=== PATIENT | female | born 1995 | race Caucasian/White ===

== ENCOUNTER → 2022-11-26 | Outpatient (CLI) | payer OTHER | LOC: M LAB 15:38 | PROVIDERS: ATTEND Advanced Practice Midwife | DX: O21.0 Mild hyperemesis gravidarum (principal); Z3A.00 Weeks of gestation of pregnancy not specified ==

== ENCOUNTER 2023-04-23 13:11 | Emergency (ER) | payer OTHER ==
[~2023-04-23] VITALS: Ht 165.1 cm; Wt 59.3 kg
[2023-04-23] MEDS ORDERED: MULTTAB20 PO (13:29)
[2023-04-23] MEDS: NS 1,000 ML IV ONE (14:29)
[2023-04-23 15:06] LABS: CPK CREATINE PHOSPHOKINASE 52 U/L (34-145)
[2023-04-23 15:09] LABS: ALBUMIN 2.6 G/DL (3.2-5.2); ALKALINE PHOSPHATASE 91 U/L (46-116); ALT/SGPT 20 U/L (7.0-40); AST/SGOT 19 U/L (<34); BILIRUBIN,DIRECT < 0.1 MG/DL (<0.4); BILIRUBIN,TOTAL 0.3 MG/DL (0.3-1.2); BLOOD UREA NITROGEN < 5 MG/DL (9-23); CALCIUM LEVEL 8.1 MG/DL (8.5-10.1); CARBON DIOXIDE LEVEL 22 MMOL/L (20-31); CHLORIDE LEVEL 107 MMOL/L (98-107); CK-MB VALUE MASS < 1.0 NG/ML (<3.6); CREATININE FOR GFR 0.37 MG/DL (0.55-1.30); GLOMERULAR FILTRATION RATE > 60.0 (>60); GLUCOSE, FASTING 94 MG/DL (60-100); MB/CK RELATIVE INDEX 1.92 (< OR =4); POTASSIUM SERUM 3.9 MMOL/L (3.5-5.1); SODIUM LEVEL 135 MMOL/L (136-145)
[2023-04-23] MEDS ORDERED: ISOVUE-370 76% 100ML VIAL As Ordered ONE (15:31)
[2023-04-23 15:37] LABS: BASO % 0.3 % (0.0-1.0); EOS # 0.1 10^3/uL (0.0-0.5); EOS % 1.7 % (0.0-3.0); HEMATOCRIT 30.6 % (36.0-47.0); HEMOGLOBIN 10.2 g/dl (12.0-15.5); LYMPH # 1.4 10^3/uL (1.5-5.0); LYMPH % 19.1 % (24.0-44.0); MEAN CORPUSCULAR HGB CONC 33.3 g/dl (32.0-36.5); MONO # 0.9 10^3/uL (0.0-0.8); MONO % 11.8 % (2.0-8.0); NEUTROPHILS % 66.6 % (36.0-66.0); PLATELET COUNT, AUTOMATED 249 10^3/uL (150-450); WHITE BLOOD COUNT 7.5 10^3/uL (4.0-10.0)
[2023-04-23] MEDS ORDERED: AZIT-12 PO ×2 (17:10→17:13)
[2023-04-23] MEDS: cefTRIAXone SOD 1 GM in D5W MINI-BAG PLUS 50 ML IV ONE (17:10)
[2023-04-23] MEDS: AZITHROMYCIN 250MG TABLET PO ONE (17:23)
[2023-04-23 18:42] VITALS: BP 116/64; TEMP 98.1; O2SAT 99
== END 2023-04-23 18:47 | disposition home or self-care (01) ==
LOC: M ED 13:11
DX: J18.9 Pneumonia, unspecified organism (principal); J06.9 Acute upper respiratory infection, unspecified; Z88.1 Allergy status to other antibiotic agents; Z88.8 Allergy status to other drugs, medicaments and biological substances; Z79.2 Long term (current) use of antibiotics; Z79.810 Long term (current) use of selective estrogen receptor modulators (SERMs)
CPT/HCPCS: 71275; 80048; 80076; 81001; 82550; 82553; 83880; 84484; 85025; 85379; 87086; 87486; 87581; 87633; 87798; 96361; 96374; 99284; J0696; Q9967

== ENCOUNTER → 2023-05-04 | Outpatient (REF) | payer OTHER ==
[~2023-05-04] MED LIST: AZIT-12 PO; MULTTAB20 PO
[2023-05-04 13:58] LABS: HEMATOCRIT 33.4 % (36.0-47.0); HEMOGLOBIN 11.2 g/dl (12.0-15.5); MEAN CORPUSCULAR HEMOGLOBIN 29.8 pg (27.0-33.0); MEAN CORPUSCULAR HGB CONC 33.5 g/dl (32.0-36.5); MEAN CORPUSCULAR VOLUME 88.8 fl (80.0-96.0); PLATELET COUNT, AUTOMATED 304 10^3/uL (150-450); RED BLOOD COUNT 3.76 10^6/uL (4.00-5.40); WHITE BLOOD COUNT 9.4 10^3/uL (4.0-10.0)
[2023-05-04 14:51] LABS: GC DNA AMPLIFICATION NEGATIVE (NEGATIVE)
== END ==
LOC: M SFHCWAGY 12:52
PROVIDERS: ATTEND Specialist
DX: Z34.83 Encounter for supervision of other normal pregnancy, third trimester (principal)

== ENCOUNTER → 2023-05-06 | Outpatient (CLI) | payer OTHER | LOC: M PLALAB 07:05 | PROVIDERS: ATTEND Specialist | DX: Z34.82 Encounter for supervision of other normal pregnancy, second trimester (principal) ==

== ENCOUNTER 2023-05-16 17:00 | Outpatient (CLI) | payer OTHER ==
[~2023-05-16] VITALS: Ht 165.1 cm; Wt 62.7 kg
[2023-05-16 17:18] VITALS: BP 126/75; O2SAT 99
[2023-05-16] MEDS ORDERED: TUMS500C PO (17:27)
[2023-05-16] MEDS ORDERED: HOME MED LIST COMPLETE! XX SCH (17:30)
[2023-05-16 19:03] LABS: HEMATOCRIT 31.8 % (36.0-47.0); HEMOGLOBIN 10.5 g/dl (12.0-15.5); MEAN CORPUSCULAR HEMOGLOBIN 28.8 pg (27.0-33.0); MEAN CORPUSCULAR VOLUME 87.4 fl (80.0-96.0); PLATELET COUNT, AUTOMATED 275 10^3/uL (150-450); RED BLOOD COUNT 3.64 10^6/uL (4.00-5.40); WHITE BLOOD COUNT 10.5 10^3/uL (4.0-10.0)
[2023-05-16] MEDS: ACETAMINOPHEN 500 MG TAB PO ONE (21:09)
== END 2023-05-16 22:00 | disposition home or self-care (01) ==
LOC: M LDO 17:00
PROVIDERS: ATTEND Advanced Practice Midwife
DX: O26.893 Other specified pregnancy related conditions, third trimester (principal); R25.2 Cramp and spasm; R10.84 Generalized abdominal pain; Z3A.30 30 weeks gestation of pregnancy
CPT/HCPCS: 36415; 59025; 85027; 85460; G0463

== ENCOUNTER → 2023-06-21 | Outpatient (REF) | payer OTHER ==
[~2023-06-21] MED LIST changes: +TUMS500C PO
== END ==
LOC: M SFHCWAGY 10:10
PROVIDERS: ATTEND Obstetrics & Gynecology
DX: Z36.85 Encounter for antenatal screening for Streptococcus B (principal); Z3A.36 36 weeks gestation of pregnancy

== ENCOUNTER 2023-06-24 10:55 | Outpatient (CLI) | payer OTHER ==
[~2023-06-24] VITALS: Ht 165.1 cm; Wt 64.8 kg
[2023-06-24] MEDS ORDERED: ACET325C5 PO (11:13)
[2023-06-24 11:15] VITALS: BP 127/80
[2023-06-24] MEDS ORDERED: HOME MED LIST COMPLETE! XX SCH (11:15)
[2023-06-24 12:07] LABS: APPEARANCE, URINE CLEAR (CLEAR); BACTERIA, URINE AUTO NEGATIVE (NEGATIVE); BILIRUBIN, URINE AUTO NEGATIVE (NEGATIVE); BLOOD, URINE BLOOD NEGATIVE (NEGATIVE); COLOR, URINE STRAW (YELLOW); GLUCOSE, URINE (UA) AUTO NEGATIVE (NEGATIVE); KETONE, URINE AUTO 1+ mg/dL (NEGATIVE); LEUKOCYTE ESTERASE, URINE AUTO NEGATIVE (NEGATIVE); NITRITE, URINE AUTO NEGATIVE (NEGATIVE); PROTEIN, URINE AUTO NEGATIVE (NEGATIVE); RBC, URINE AUTO 1 /HPF (0-3); SPECIFIC GRAVITY URINE AUTO 1.004 (1.002-1.035); SQUAMOUS EPITHELIAL CELL UR AU 1 /HPF (0-6); UROBILINOGEN, URINE AUTO 0.2 mg/dL (0.0-2.0); WBC, URINE AUTO 0 /HPF (0-3)
[2023-06-24 14:45] VITALS: BP 120/72
== END 2023-06-24 15:37 | disposition home or self-care (01) ==
LOC: M LDO 10:55
PROVIDERS: ATTEND Advanced Practice Midwife
DX: O47.03 False labor before 37 completed weeks of gestation, third trimester (principal); Z3A.36 36 weeks gestation of pregnancy; Z88.1 Allergy status to other antibiotic agents
CPT/HCPCS: 59025; 81001; G0463

== ENCOUNTER 2023-06-27 12:31 | Inpatient (IN) | payer OTHER ==
[~2023-06-27] VITALS: Ht 165.1 cm; Wt 64.7 kg
[2023-06-27] VITALS (34 sets, daily range): BP systolic 93–149; BP diastolic 51–82; O2SAT 99
[~2023-06-27 12:31] MED LIST changes: +ACET325C5 PO
[2023-06-27] MEDS ORDERED: HOME MED LIST COMPLETE! XX SCH (12:45)
[2023-06-27] MEDS ORDERED: OXYTOCIN INJ 10UNITS/ML 1ML VIAL IM PRN (13:10)
[2023-06-27] MEDS ORDERED: LIDOCAINE 1% MDV 20ML VIAL INFIL PRN (13:10)
[2023-06-27] MEDS ORDERED: CARBOPROST TROMETHAMINE 250 MCG/ML AMP IM PRN (13:10)
[2023-06-27] MEDS ORDERED: TRANEXAMIC ACID INJection 1,000 MG in NS 100 ML IV PRN (13:10)
[2023-06-27] MEDS ORDERED: METHYLERGONOVINE MALEATE 0.2MG/ML 1ML VIAL IM PRN (13:10)
[2023-06-27 14:02] LABS: HEMATOCRIT 33.1 % (36.0-47.0); HEMOGLOBIN 10.8 g/dl (12.0-15.5); MEAN CORPUSCULAR HEMOGLOBIN 27.6 pg (27.0-33.0); MEAN CORPUSCULAR HGB CONC 32.6 g/dl (32.0-36.5); MEAN CORPUSCULAR VOLUME 84.4 fl (80.0-96.0); PLATELET COUNT, AUTOMATED 298 10^3/uL (150-450); RED BLOOD COUNT 3.92 10^6/uL (4.00-5.40); WHITE BLOOD COUNT 9.4 10^3/uL (4.0-10.0)
[2023-06-27] MEDS: VANCOMYCIN HCL 1,000 MG, VIAL MATE ADAPTER 1 EACH in NS 250 ML IV SCH (14:06)
[2023-06-27] MEDS: LR 1,000 ML IV SCH (14:06)
[2023-06-27] MEDS: OXYTOCIN DRIP 30 UNITS in IV 1 EA IV SCH (14:32)
[2023-06-27] MEDS: diphenhydrAMINE 50MG/ML VIAL IV STA (14:51)
[2023-06-27] MEDS: LORATADINE 10 MG TAB PO ONE (15:09)
[2023-06-27 15:21] LABS: HEPATITIS C VIRUS ABY INDEX 0.02 INDEX (<0.8)
[2023-06-27] MEDS: CALCIUM CARBONATE 500 MG CHEW U/D PO ONE (17:45)
[2023-06-27] MEDS: OMEPRAZOLE 20MG CAP PO ONE (19:27)
[2023-06-27] MEDS: LACTATED RINGER'S 1000 ML IV STA (20:02)
[2023-06-27] MEDS ORDERED: ePHEDrine SULFATE 25 MG/5 ML(5MG/ML) SYRINGE IVP PRN (20:50)
[2023-06-27] MEDS ORDERED: diphenhydrAMINE 50MG/ML VIAL IV PRN (20:50)
[2023-06-27] MEDS ORDERED: EPIDURAL/PCA KEYS XX PRN (20:50)
[2023-06-27] MEDS ORDERED: LR 500 ML IV PRN (20:50)
[2023-06-27] MEDS ORDERED: NALOXONE INJ 0.4MG/1ML VIAL IV PRN (20:50)
[2023-06-27] MEDS: FENTANYL/ROPIVACAINE/NACL BAG 100 ML EPIDURAL SCH (21:16)
[2023-06-27] MEDS: ONDANSETRON 4MG 2ML VIAL IV PRN (23:09)
[2023-06-27] MEDS: OXYTOCIN DRIP 30 UNITS in IV 1 EA IV PRN (23:25)
[2023-06-28] VITALS (7 sets, daily range): BP systolic 105–134; BP diastolic 55–79; O2SAT 98–99
[2023-06-28] MEDS: IBUPROFEN 800 MG TAB PO ONE (03:40)
[2023-06-28] MEDS: ACETAMINOPHEN 500 MG TAB PO ONE (03:40)
[2023-06-28] MEDS ORDERED: IBUPROFEN 600MG TAB PO PRN (06:40)
[2023-06-28] MEDS ORDERED: ACETAMINOPHEN TAB 650MG DOSE (2X325MG) PO PRN (06:40)
[2023-06-28] MEDS ORDERED: ANUSOL HC CREAM 30GM TOP PRN (06:40)
[2023-06-28] MEDS ORDERED: RHO(D) IMMUNE GLOBULIN/MALTOSE 500MCG(2500IU)/2.2ML VIAL (WINRHO) IM SCH (06:40)
[2023-06-28] MEDS ORDERED: MOM 30ML SUSPENSION UDC PO PRN (06:40)
[2023-06-28] MEDS: PRENATAL VITAMINS CHEWABLE TABLET PO SCH (09:15)
[2023-06-28] MEDS: ACETAMINOPHEN 500 MG TAB PO PRN (09:16)
[2023-06-28] MEDS: IBUPROFEN 800 MG TAB PO PRN (12:55)
[2023-06-28] MEDS: DOCUSATE SODIUM 100MG CAPSULE PO PRN (16:18)
[2023-06-29] MEDS: DIBUCAINE 1% OINTMENT 30GM TOP PRN (05:03)
[2023-06-29 06:00] VITALS: BP 114/69; O2SAT 98
[2023-06-29] MEDS ORDERED: ACET-683 PO (09:53)
[2023-06-29] MEDS ORDERED: IBUP80TA PO (09:53)
[2023-06-30] MEDS ORDERED: MEASLES,MUMPS,RUBELLA VACCINE INJ (MMR-II) SC.IMMUN ONE (09:00)
== END 2023-06-29 13:00 | disposition home or self-care (01) | DRG 807 ==
LOC: M LDI 12:31 → M OBS 06-28 03:34
PROVIDERS: ADMIT Advanced Practice Midwife; ATTEND Advanced Practice Midwife
PROC: 10907ZC Drainage of Amniotic Fluid, Therapeutic from Products of Conception, Via Natural or Artificial Opening (ICD-10-PCS; 2023-06-27)
PROC: 10E0XZZ Delivery of Products of Conception, External Approach (ICD-10-PCS; principal; 2023-06-28)
PROC: 0HQ9XZZ Repair Perineum Skin, External Approach (ICD-10-PCS; 2023-06-28)
DX: O42.013 Preterm premature rupture of membranes, onset of labor within 24 hours of rupture, third trimester (principal); Z37.0 Single live birth; Z3A.36 36 weeks gestation of pregnancy; Z88.0 Allergy status to penicillin; Z88.8 Allergy status to other drugs, medicaments and biological substances; O99.824 Streptococcus B carrier state complicating childbirth; O32.6XX0 Maternal care for compound presentation, not applicable or unspecified; O70.0 First degree perineal laceration during delivery

== ENCOUNTER → 2023-12-25 | Outpatient (REF) | payer OTHER ==
[~2023-12-25] MED LIST changes: +ACET-683 PO; +IBUP80TA PO
== END ==
LOC: M LAB REF 09:53
PROVIDERS: ATTEND Registered Nurse
DX: J06.9 Acute upper respiratory infection, unspecified (principal)

== ENCOUNTER → 2023-12-26 | Outpatient (CLI) | payer OTHER | LOC: M PLAIMG 10:03 | PROVIDERS: ATTEND Registered Nurse | DX: J20.9 Acute bronchitis, unspecified (principal) ==